=== PATIENT | female | born 1970 | race Native Hawaiian/Other Pacific Islander ===

== ENCOUNTER 2016-08-05 13:48 | Outpatient (CLI) | payer OTHER | END 2016-08-05 15:12 | disposition short-term general hospital (02) | LOC: AMB 13:48 | DX: S22.41XA Multiple fractures of ribs, right side, initial encounter for closed fracture (principal); S00.93XA Contusion of unspecified part of head, initial encounter; S02.32XA Fracture of orbital floor, left side, initial encounter for closed fracture; S00.83XA Contusion of other part of head, initial encounter; S06.0X9A Concussion with loss of consciousness of unspecified duration, initial encounter; Y04.2XXA Assault by strike against or bumped into by another person, initial encounter; Y92.098 Other place in other non-institutional residence as the place of occurrence of the external cause | CPT/HCPCS: A0425; A0427 ==

== ENCOUNTER 2017-07-12 01:59 | Emergency (ER) | payer OTHER ==
[~2017-07-12] VITALS: Ht 170.2 cm; Wt 90.7 kg
[2017-07-12 03:01] LABS: PLATELET COUNT 498 K/uL (152-353)
[2017-07-12 03:14] LABS: POTASSIUM 3.9 mmol/L (3.6-5.2)
[2017-07-12 04:58] VITALS: BP 140/81; TEMP 98.5
== END 2017-07-12 05:04 | disposition home or self-care (01) ==
LOC: ED 01:59
DX: S16.1XXA Strain of muscle, fascia and tendon at neck level, initial encounter (principal); S20.212A Contusion of left front wall of thorax, initial encounter; S20.211A Contusion of right front wall of thorax, initial encounter; V49.3XXA Car occupant (driver) (passenger) injured in unspecified nontraffic accident, initial encounter
CPT/HCPCS: 36415; 80053; 80307; 80320; 81000; 85027; 96372; 96374; 96375; 99284; J1020; J1100; J1885; J2405; Q9963

== ENCOUNTER 2020-12-21 21:24 | Emergency (ER) | payer OTHER ==
[~2020-12-21] VITALS: Ht 170.2 cm; Wt 90.7 kg
[2020-12-22 00:25] VITALS: BP 156/94; TEMP 98.1
== END 2020-12-22 00:35 | disposition home or self-care (01) ==
LOC: ED 21:24
PROC: 0HQ1XZZ Repair Face Skin, External Approach (ICD-10-PCS; principal; 2020-12-21)
DX: S01.81XA Laceration without foreign body of other part of head, initial encounter (principal); S00.83XA Contusion of other part of head, initial encounter; Y04.2XXA Assault by strike against or bumped into by another person, initial encounter; Y92.89 Other specified places as the place of occurrence of the external cause
CPT/HCPCS: 90471; 90715; 96372; 99283; J1885